=== PATIENT | male | born 1960 | race Caucasian/White ===

== ENCOUNTER 2021-10-01 23:26 | Emergency (ER) | payer OTHER, SELFPAY ==
--- NOTE | 2021-10-01 23:27 | XRR_ITS ---
PROCEDURE INFORMATION: Exam: XR Chest Exam date and time: 10/02/2021 12:24 AM Age: 60 years old Clinical indication: Cough and fever; Additional info: SOB, productive cough TECHNIQUE: Imaging protocol: Radiologic exam of the chest. Views: 1 view. COMPARISON: No relevant prior studies available. FINDINGS: Lungs: Unremarkable. No consolidation. Pleural spaces: Unremarkable. No pleural effusion. No pneumothorax. Heart/Mediastinum: Unremarkable. No cardiomegaly. Bones/joints: Unremarkable. XR/XR chest 1V portable 15095 IMPRESSION: No acute findings.
[2021-10-01 23:33] VITALS: BP 142/86; PULSE 82; RESP 24; TEMP 37.4; O2SAT 94
[2021-10-02] VITALS: O2SAT 91
--- NOTE | 2021-10-02 00:28 | ED_ITS ---
HPI - COVID General: Chief Complaint: COVID symptoms Stated Complaint: Covid +, sob Time Seen by Provider: 10/01/21 23:56 Triage information: Has fever, cough or shortness of breath . Exposure to COVID + person last 14 days History of Present Illness: 60-year-old male patient comes in with a 3-day history of body aches, fever, and cough. Patient this evening started feeling very short of breath and came into the emergency room due to the shortness of breath. Patient appears unwell but not toxic. Patient appears in no pain. Patient denies any chronic medical problems. Patient was seen at urgent care this morning and diagnosed with COVID-19 and was given a azithromycin prescription. Patient has been using [id number] DayQuil/NyQuil for symptoms. COVID 19 common symptoms: positive fever(s) and dyspnea COVID Results: No Data to Display Review of Systems General: Reports: 10 or more systems reviewed and unremarkable except in HPI and below Const: Reports: fever(s) Resp: Reports: dyspnea Physical Exam Const: COMMON NORMALS: alert HENMT: COMMON NORMALS: normocephalic HEAD & SCALP: normocephalic Neck/C-Spine: COMMON NORMALS: full ROM Resp: COMMON NORMALS: normal respiratory effort AUSCULTATION: diminished lung sounds Cardio: COMMON NORMALS: regular rate RATE: regular rate Extremity: COMMON NORMALS: no pedal edema Neuro: SENSORIUM/ORIENTATION: Yes alert Skin: COMMON NORMALS: no rashes or lesions noted GENERAL SKIN EXAM: no rashes or lesions noted Course Vital Signs: Vital signs: Vital Signs Temperature 99.4 F 10/01/21 23:33 Pulse Rate 82 10/01/21 23:33 Respiratory Rate 24 H 10/01/21 23:33 Blood Pressure 142/86 10/01/21 23:33 Pulse Oximetry 94 10/01/21 23:33 Oxygen Delivery Me thod 10/01/21 23:33 MDM - COVID Medical Decision Making 60-year-old male patient comes in with illness for 3 days. Patient reported some increasing shortness of breath tonight. On exam respirations were even lungs were decreased in the bases. No edema was noted in the extremities. Vital signs were normal. Differential diagnosis includes not limited to pneumonia, bronchitis, malingering. Chest x-ray was unremarkable. Patient did test positive for COVID-19 this morning. We will go ahead and give patient a dose of dexamethasone 10 mg x 1. Patient be started on albuterol inhaler 2 puffs every 4 hours as needed for cough or shortness of breath. Patient was also set up for home oxygen to use as needed for dyspnea and at sleep. Patient can continue with his routine treatment of azithromycin and [id number] medications. Patient reported understanding and agreed to plan. After review of medication oral treatment for COVID-19 patient did want to go ahead with a trial of Paxlovid. Lab Data No Data to Display Discharge Plan Discharge Patient Disposition: Home Clinical Impression: Bronchitis due to COVID-19 virus Dyspnea Qualifiers: Dyspnea type: unspecified Qualified Code(s): R06.00 - Dyspnea, unspecified Condition: Stable Prescriptions: New Paxlovid (EUA) 150 mg x 2- 100 mg tablet See Rx Instructions .ROUTE .COMPLEX Qty: 30 0RF Rx Instructions: take TWO 150 mg tablets of nirmatrelvir with ONE 100 mg tablet of ritonavir twice daily for 5 days Discharge Orders: Discharge ED (Routine); Ordered 10/02/21 Ordered By: Daniel Hankins Other Ambulatory Orders: DME: Oxygen (Order) Location: None Selected Ordered By: Daniel Hankins Discharge Diet: Usual diet Discharge Activity: Increase activity as tolerated Patient Instructions: COVID-19 (Coronavirus Disease 2019) (ED) Activity Restrictions/Additional Instructions: Drink plenty of water and fluids. Use acetaminophen and ibuprofen to control fever. Use albuterol inhaler 2 puffs every 4 hours as needed for shortness of breath. Use oxygen especially at night when sleeping or during periods of shortness of breath. Follow-up with primary care in 3 to 5 days for recheck. Return to ER for worsening symptoms such as coughing up blood, severe chest pain, severe shortness of breath. Coding Level of Care Code ED Link And Link Knitting Machine Operator for Neno Ennis
[2021-10-02] MEDS: dexamethasone 10 mg/mL INJ IM (01:00)
[2021-10-02 01:08] VITALS: PULSE 78; RESP 18; O2SAT 92
[2021-10-02] MEDS: albuterol 8 gm MDI 2 PUFF INHALATION (01:10)
--- NOTE | 2021-10-02 01:13 | PC.RESP ---
home oxygen eval pt spo2 90% on room air pre exercise lowest spo2 on room air during exercise- 93%
[2021-10-02 01:29] VITALS: O2SAT 90; O2SAT 93
[2021-10-02 01:43] VITALS: PULSE 70; RESP 18; O2SAT 93
== END 2021-10-02 01:46 | disposition home or self-care (01) ==
PROVIDERS: Emergency Provider Nurse Practitioner Family
DX: U07.1 COVID-19 (principal); J40 Bronchitis, not specified as acute or chronic; R06.00 Dyspnea, unspecified
CPT/HCPCS: 71045; 94640; 96372; 99284; J1100; J3535

== ENCOUNTER 2023-03-31 11:49 | Emergency (ER) | payer OTHER, SELFPAY ==
[2023-03-31 12:03] VITALS: BP 133/83; PULSE 79; RESP 18; TEMP 36.3; O2SAT 97
[2023-03-31] MEDS: ondansetron 4 MG Tablet PO (13:17)
[2023-03-31] MEDS: ketorolac 30 mg/mL INJ IM (13:17)
[2023-03-31] MEDS: lidocaine 2% viscous 15 mL UDC 10 ML MUCOUS MEM (13:17)
--- NOTE | 2023-03-31 13:37 | ED_ITS ---
HPI - Nausea/Vomiting/Diarrhea General: Chief complaint: Nausea/Vomiting/Diarrhea Stated complaint: N/V, headahce, toothache, ear ache Time Seen by Provider: 03/31/23 12:25 History of Present Illness: 62-year-old male presents emergency depa rtment chief complaint of having dental pain right-sided facial swelling and nausea vomiting patient Dors that she broke off a tooth a couple months ago when she is having trouble seeing by dentistry patient endorses good consistent persistent throbbing of the lower jaw and tooth that was broken off per the patient he has no recent fevers or chills she does endorse having couple episodes of post emesis due to the pain patient presents to the ER with his present for further assessment and management. Associated nausea: No Associated symtoms: Denies anxiety, change in vision, chest pain, fatigue, headache(s), malaise, nausea or palpitations Review of Systems General: Reports: 10 or more systems reviewed and unremarkable except in HPI and below Const: Denies: fever(s), chills, fatigue or malaise Eyes: Denies: change in vision or blurry vision ENMT: Reports: throat pain and dental pain Card: Denies: chest pain or palpitations Resp: Denies: dyspnea or productive cough GI: Denies: abdominal pain, nausea or vomiting : Denies: flank pain Musc: Denies: extremity pain or extremity swelling Skin/Breast: Denies: rash or pruritus Neuro: Denies: headache(s) Psych: Denies: anxiety or depression Dewayne/Lymph: Denies: easy bleeding All/Imm: Denies: urticaria, throat swelling or facial swelling Physical Exam Const: COMMON NORMALS: no acute distress, patient oriented x3 and healthy appearing HENMT: COMMON NORMALS: normocephalic and atraumatic HEAD & SCALP: normocephalic and atraumatic OTHER: What appears to be her right lower premolar fractured tooth with periapical abscess appreciated Neck/C-Spine: OTHER: Bilateral anterior cervical adenopathy appreciated no stridor apparent Lymph: LYMPHATIC: no lymphadenopathy noted Chest: COMMONS NORMALS: normal inspection of the chest and normal palpation of entire chest wall Resp: COMMON NORMALS: normal respiratory effort, No retractions and clear to auscultation bilaterally EFFORT & INSPECTION: Yes able to speak in complete sentences and Yes symmetric chest movement AUSCULTATION: clear to auscultation bilaterally Cardio: COMMON NORMALS: regular rate and regular rhythm RATE: regular rate RHYTHM: regular rhythm GI: COMMON NORMALS: Normal to inspection, nondistended, normoactive bowel sounds present, Soft to palpation and non-tender INSPECTION: Yes normal to inspection PALPATION: Yes Soft to palpation : COMMON NORMALS: Yes no CVA tenderness BLADDER/KIDNEY EXAM: Yes no CVA tenderness Back/Pelvis: COMMON NORMALS: no CVA tenderness Extremity: COMMON NORMALS: normal to inspection and full ROM Neuro: COMMON NORMALS: patient oriented x3, CN's II-XII intact bilaterally, moves all extremities and no focal motor deficits Psych: COMMON NORMALS: mental status grossly normal, Normal thought process present, cooperative and normal affect THOUGHT PROCESS: Normal thought proces s present Skin: COMMON NORMALS: no rashes or lesions noted GENERAL SKIN EXAM: no rashes or lesions noted Course Vital Signs: Vital signs: Vital Signs Temperature 97.4 F L 03/31/23 12:03 Pulse Rate 79 03/31/23 12:03 Respiratory Rate 18 03/31/23 12:03 Blood Pressure 133/83 03/31/23 12:03 Pulse Oximetry 97 03/31/23 12:03 Oxygen Delivery Me thod Room Air 03/31/23 12:03 MDM - Nausea/Vomiting/Diarrhea Medical Decision Making Due to patient's symptoms and condition we will be starting him on some antibiotics as well as medication for his discomfort and pain did advise that he further follow-up with his dentist in the next 1 week for further assessment and management which patient was advised return the interim if any of his symptoms persist or worse. No radiology studies performed this visit Discharge Plan Discharge Patient Disposition: Home Clinical Impression: Abscess, periapical, with sinus, Dental decay Vomiting Qualifiers: Vomiting type: unspecified Condition: Stable Prescriptions: New clindamycin HCl 300 mg capsule 300 mg PO Q8H 10 Days Qty: 30 0RF ondansetron 4 mg tablet,disintegrating 4 mg PO Q8H PRN (Reason: nausea and vomiting) 5 Days Qty: 14 0RF ketorolac 10 mg tablet 10 mg PO TID PRN (Reason: pain) Qty: 14 0RF Lidocaine Viscous 2 % solution 5 ml mucous membrane BID PRN (Reason: pain) Qty: 100 0RF No Action cetirizine 10 mg Tablet 10 mg PO DAILY meloxicam 15 mg tablet 15 mg PO DAILY sertraline 100 mg tablet 100 mg PO DAILY topiramate 25 mg tablet 25 mg PO DAILY niacin 50 mg Tablet 50 mg PO DAILY tramadol 50 mg tablet 50 mg PO DAILY Calcium 500 500 mg calcium (1,250 mg) Tablet 500 mg PO DAILY Vitamin C 500 mg Tablet 500 mg PO DAILY omeprazole 20 mg capsule,delayed release(DR/EC) 20 mg PO DAILY Flonase 50 mcg/actuation [place],Suspension 2 spray INTRANASAL DAILY Rx Instructions: administer into each nostril Fish Oil 300-500 mg Capsule 1 cap PO BID Tart Escobedo [id number] mg Capsule 1 cap PO BID loratadine 10 mg Capsule 10 mg PO DAILY Discharge Orders: Discharge ED (Routine); Ordered 03/31/23 Ordered By: Bar Gallegos Referrals: Cindi Maynard MD [Primary Care Provider] - Discharge Diet: Advance as tolerated Discharge Activity: Increase activity as tolerated Patient Instructions: Dental Abscess (ED) Activity Restrictions/Additional Instructions: Please further follow-up with your primary care doctor or dentist in the next 1 week, please take medications as prescribed in which please return in the interim if any of your symptoms persist or worse. Coding Level of Care Code ED Perinatal Specialist for Neno Ennis
[2023-03-31 13:38] VITALS: BP 145/87; PULSE 85; RESP 18; O2SAT 95
[2023-03-31 14:32] VITALS: BP 145/87; PULSE 85; RESP 18; TEMP 36.3; O2SAT 95
== END 2023-03-31 14:33 | disposition home or self-care (01) ==
PROVIDERS: Emergency Provider Emergency Medicine; PCP Family Medicine
DX: K04.6 Periapical abscess with sinus (principal); K02.9 Dental caries, unspecified
CPT/HCPCS: 96372; 99284; J1885; Q0162